=== PATIENT | female | born 1935 | race Caucasian/White ===

== ENCOUNTER 2018-09-02 12:21 | Inpatient (IN) | payer MEDICARE ==
[~2018-09-02] VITALS: Ht 157.5 cm; Wt 45.8 kg
--- NOTE | ~2018-09-02 | PN ---
PATIENT:BOBBY HUGHES MEDICAL RECORD: [id number] LOCATION:DELMIS KhalilLei ADMISSION DATE: 09/02/18 PROGRESS NOTE DATE OF SERVICE: 09/11/2018 SUBJECTIVE: The patient's case was discussed with staff. She has no new complaint. OBJECTIVE: The patient denies intent to harm herself or others. She generally tolerates her medicines well. She is participating in some activities, but generally is withdrawn and isolated. She is sleeping well, but is not eating very well. She is taking Megace to assist with this. TRANSINT:[id number] Voice Confirmation ID: [id number] DOCUMENT ID: [id number] PALLAVI DENNIS MD at 1050 CC: [id number] DICTATION DATE: 09/11/18 1311 PICKLE MAKER: 09/11/18 1337 ADM IN [facility] [address] [place] [address]
--- NOTE | ~2018-09-02 | PN ---
PATIENT:BOBBY HUGHES MEDICAL RECORD: [id number] LOCATION:FrancoSemajTAMMIE Khalil112 ADMISSION DATE: 09/02/18 PROGRESS NOTE DATE OF SERVICE: 09/08/2018 SUBJECTIVE: The patient's case was discussed with staff. She has no new complaint. OBJECTIVE: The patient denies intent to harm herself or others. She generally tolerates her medicines well. She has fairly limited insight about her situation. ASSESSMENT: No change in diagnoses. PLAN: The patient is not eating well. I am going to check baseline labs to get a feel for any metabolic abnormalities. She is also not sleeping well, I am going to prescribe trazodone at a dose of 50 mg at bedtime. Her dementia is quite advanced. I am afraid her prognosis is not very good unless I can change the current circumstances and in particular increase her oral intake. TRANSINT:[id number] Voice Confirmation ID: [id number] DOCUMENT ID: [id number] PALLAVI DENNIS MD at 1327 CC: [id number] DICTATION DATE: 09/09/18 1030 DIRECTOR OF GLOBAL MARKETING: 09/09/18 1105 ADM IN [facility] [address] [place] [address]
--- NOTE | ~2018-09-02 | PN ---
PATIENT:BOBBY HUGHES MEDICAL RECORD: [id number] LOCATION:DELMIS KhalilLei ADMISSION DATE: 09/02/18 PROGRESS NOTE DATE OF SERVICE: 09/10/2018 SUBJECTIVE: The patient's case was discussed with staff. She has no new complaint. OBJECTIVE: The patient denies intent to harm herself or others. She is impaired cognitively. She did require some p.r.n. medication for agitation. ASSESSMENT: No change in diagnoses. PLAN: The patient will be given trazodone at a higher dose for sleep consolidation. Her long-term prognosis is guarded. Supportive and educational interventions were made. TRANSINT:[id number] Voice Confirmation ID: [id number] DOCUMENT ID: [id number] PALLAVI DENNIS MD at 1309 CC: [id number] DICTATION DATE: 09/10/18 1332 TICKET MANAGER: 09/10/18 1540 ADM IN [place] [address] [place] [id number]
--- NOTE | ~2018-09-02 | PN ---
PATIENT:BOBBY HUGHES MEDICAL RECORD: [id number] LOCATION:DELMIS Khalil112 ADMISSION DATE: 09/02/18 PROGRESS NOTE DATE OF SERVICE: 09/07/2018 SUBJECTIVE: The patient's case was discussed with staff. She has no new complaint. OBJECTIVE: The patient is oriented partially. She only began taking her medicine consistently yesterday. She did sleep for 8-1/2 hours. Unfortunately, she ate nothing yesterday. This was despite efforts to encourage her to eat. She now says that she wants to and that she is not going to eat. ASSESSMENT: No change in diagnoses. PLAN: The patient's thyroid level is good. She is on Zoloft and Namenda. They have not had an opportunity to become effective. I will maintain the dose as they are today, but we will likely increase the dose tomorrow. TRANSINT:[id number] Voice Confirmation ID: [id number] DOCUMENT ID: [id number] PALLAVI DENNIS MD at 1133 CC: [id number] DICTATION DATE: 09/07/18 1519 TOURIST HOME KEEPER: 09/07/181999 ADM IN [facility] [address] [place] [address]
--- NOTE | ~2018-09-02 | PN ---
PATIENT:BOBBY HUGHES MEDICAL RECORD: [id number] LOCATION:DELMIS KhalilLei ADMISSION DATE: 09/02/18 PROGRESS NOTE DATE OF SERVICE: 09/14/2018 SUBJECTIVE: The patient's case was discussed with staff. She has no new complaint. OBJECTIVE: The patient is in good behavioral control with limited insight about her condition. She generally tolerates her medicines well. ASSESSMENT: No change in diagnoses. PLAN: Current medicines have been reviewed and will be maintained. I am going to discontinue her trazodone since she is obviously sleeping adequately. TRANSINT:[id number] Voice Confirmation ID: [id number] DOCUMENT ID: [id number] PALLAVI DENNIS MD at 1058 CC: [id number] DICTATION DATE: 09/14/18 1426 BODY MASKER: 09/14/18 1622 ADM IN [facility] [address] [place] [address]
--- NOTE | ~2018-09-02 | PN ---
PATIENT:BOBBY HUGHES MEDICAL RECORD: [id number] LOCATION:DELMIS RemiLei ADMISSION DATE: 09/02/18 PROGRESS NOTE DATE OF SERVICE: 09/03/2018 SUBJECTIVE: The patient's case was discussed with staff. She has no new complaint. OBJECTIVE: The patient denies intent to harm herself or others. She is much more verbal today and interacts with me in a very appropriate manner. She is clearly impaired cognitively and some of the information she gives me is probably not correct and I say this based on the fact that other things she tells me her clearly confabulated. She does endorse depressive symptoms, but denies that she would seek to harm herself. She is not eating adequately for reasons that are a little unclear. She is depressed, but I do not think that is the reason I am thinking this is more of something related to an advanced dementia. ASSESSMENT: No change in diagnoses. PLAN: I am going to change the patient's Celexa to a different antidepressant. I am also going to start her on Megace for its appetite stimulating properties. TRANSINT:[id number] Voice Confirmation ID: [id number] DOCUMENT ID: [id number] PALLAVI DENNIS MD at 1249 CC: [id number] DICTATION DATE: 09/03/18 1633 METAL SOLDERER: 09/03/18 1724 ADM IN [place] [address] [place] [address]
--- NOTE | ~2018-09-02 | PN ---
PATIENT:BOBBY HUGHES MEDICAL RECORD: [id number] LOCATION:DELMIS Khalil112 ADMISSION DATE: 09/02/18 PROGRESS NOTE DATE OF SERVICE: 09/17/2018 SUBJECTIVE: The patient's case was discussed with staff. She has no new complaint. OBJECTIVE: The patient denies intent to harm herself or others. She is quite impaired cognitively. I think she may be eating a little bit better today. She actually asked for some water and that was encouraging. She has a BUN of 24 and a creatinine of 1.1 two days ago. I am hopeful that the Megace is helping. She ate all of her breakfast yesterday, but actually none of her lunch and dinner. With regard to her medications, she is on a reasonable dose of an antidepressant, although my opinion is that this is not depression, it is dementia that is causing her to not eat, but nevertheless, she is on a reasonable dose of Zoloft. It has only been at this dose for a day or two. She is taking some Klonopin at a very low dose to relieve some of her shaking and agitation. She did sleep fairly well last night. I think it would be reasonable to try her on a low dose of Namenda to help with her cognitive impairment. I have been reluctant to give her Aricept since it is often associated with anorexia. The Namenda can be as well, but it is less likely and I am not really sure how she could be even less prone to eat than she currently is, so I am going to go ahead and give it a try. I think if she thought a little bit more clearly perhaps we might be able to get her to eat or drink some. ASSESSMENT: No change in diagnoses. PLAN: This patient's condition is grave. She was seen and accepted by hospice today. If I cannot turn her situation around in this hospitalization, she will just be going to the intermediate with comfort care. I am not optimistic I can do that, but I do not want to discharge her until I feel confident that I have tried every possible remedy or treatment to make her more active and to eat and drink more. TRANSINT:[id number] Voice Confirmation ID: [id number] DOCUMENT ID: [id number] PALLAVI DENNIS MD at 1204 CC: [id number] DICTATION DATE: 09/17/181743 WOOD SCALER: 09/17/18 2336 ADM IN [facility] [address] [place] [id number]
--- NOTE | ~2018-09-02 | PN ---
PATIENT:BOBBY HUGHES MEDICAL RECORD: [id number] LOCATION:DELMIS Khalil112 ADMISSION DATE: 09/02/18 PROGRESS NOTE DATE OF SERVICE: 09/05/2018 SUBJECTIVE: The patient's case was discussed with staff. She has no new complaint. OBJECTIVE: The patient has been somewhat agitated today. She has been hitting and kicking at the staff when they are trying to provide basic care to her. I asked her about this, but she became angry and turned away and then would not talk to me at all after that. I have reviewed her current medications. She still is not eating well even though Megace has been started, but it probably has not had an opportunity to become effective. I am going to give her a low dose of an antidepressant in case these behaviors are somewhat related to a depressive condition. At this point, I do not believe that they probably are, but the relative risks and benefits is in favor of using the medicine. It is my opinion that the behaviors are related to a dementia and an underlying personality disorder. TRANSINT:[id number] Voice Confirmation ID: [id number] DOCUMENT ID: [id number] PALLAVI DENNIS MD at 1556 CC: [id number] DICTATION DATE: 09/05/18 1253 MED SPA MANAGER: 09/05/18 1514 ADM IN [place] [id number] [place] [address]
--- NOTE | ~2018-09-02 | PN ---
PATIENT:BOBBY HUGHES MEDICAL RECORD: [id number] LOCATION:DELMIS KhalilLei ADMISSION DATE: 09/02/18 PROGRESS NOTE DATE OF SERVICE: 09/18/2018 5SUBJECTIVE: The patient's case was discussed with staff. She has no new complaint. GENERAL: The patient is alert and oriented to person only. She did eat a little better yesterday, but still is not eating adequately. She has very limited insight and denies that she would seek to harm herself or others. ASSESSMENT: No change in diagnoses. PLAN: Current medicines have been reviewed and will be maintained. Long-term prognosis is guarded. TRANSINT:[id number] Voice Confirmation ID: [id number] DOCUMENT ID: [id number] PALLAVI DENNIS MD at 1052 CC: [id number] DICTATION DATE: 09/18/18 1213 HEAD OF STORE OPERATIONS: 09/18/18 1229 ADM IN [place] [address] [place] [address]
--- NOTE | ~2018-09-02 | PN ---
PATIENT:BOBBY HUGHES MEDICAL RECORD: [id number] LOCATION:DELMIS Remi112 ADMISSION DATE: 09/02/18 PROGRESS NOTE DATE OF SERVICE: 09/16/2018 SUBJECTIVE: The patient's case was discussed with staff. She has no new complaint. OBJECTIVE: The patient has limited insight about her condition. She generally tolerates her medicines well. She is still not eating or drinking adequately. Hospice is going to evaluate her or they may have evaluated her since I saw her this morning. ASSESSMENT: No change in diagnoses. PLAN: The patient had her Zoloft increased yesterday. I really do not think her issues are related to depression. I think it is an advanced dementia, but it is a reasonable step to give her an antidepressant with the hopes that her appetite will improve. If accepted by hospice, I anticipate she can be transitioned there soon. TRANSINT:[id number] Voice Confirmation ID: [id number] DOCUMENT ID: [id number] PALLAVI DENNIS MD at 1730 CC: [id number] DICTATION DATE: 09/16/18 1425 SHUTTLE TRUCK DRIVER: 09/16/18 1508 ADM IN [facility] [address] [place] [address]
--- NOTE | ~2018-09-02 | PN ---
PATIENT:BOBBY HUGHES MEDICAL RECORD: [id number] LOCATION:DELMIS Khalil112 ADMISSION DATE: 09/02/18 PROGRESS NOTE DATE OF SERVICE: 09/15/2018 SUBJECTIVE: The patient's case was discussed with staff. She has no new complaint. OBJECTIVE: The patient is in good behavioral control. She has limited insight about her condition. She generally tolerates her medicines well. Unfortunately, she is not eating. I think this is related to an advanced dementia, but I am going to treat her with antidepressant medications as a possible secondary or contributing factor. Obviously, if she cannot or will not eat, her long-term survival is at risk. I am going to increase her dose of Zoloft today to try to address this issue. Hospice is going to evaluate her for possible placement in hospice. I am also going to order baseline labs to see how metabolically impaired she is. TRANSINT:[id number] Voice Confirmation ID: [id number] DOCUMENT ID: [id number] PALLAVI DENNIS MD at 0908 CC: [id number] DICTATION DATE: 09/15/18 1117 AUTOMATION QA ANALYST: 09/15/18 1150 ADM IN [facility] [address] [place] [address]
--- NOTE | ~2018-09-02 | PN ---
PATIENT:BOBBY HUGHES MEDICAL RECORD: [id number] LOCATION:DELMIS GamezSemaj112 ADMISSION DATE: 09/02/18 PROGRESS NOTE DATE OF SERVICE: 09/20/2018 SUBJECTIVE: The patient's case was discussed with staff. She has no new complaint. OBJECTIVE: The patient continues to not eat adequately or consume adequate fluids. She was a little agitated last night, required some p.r.n. Ativan. I have discussed the situation with the full treatment team this afternoon. ASSESSMENT: No change in diagnoses. PLAN: I am going to increase the patient's Namenda slightly. It is my opinion after consulting with the nursing staff and social media marketing manager that this patient is not going to improve. Based on this, she will be transitioned to the longterm tomorrow with hospice in attendance. Unfortunately, her prognosis is exceedingly poor. TRANSINT:[id number] Voice Confirmation ID: [id number] DOCUMENT ID: [id number] PALLAVI DENNIS MD at 1147 CC: [id number] DICTATION DATE: 09/20/18 1609 INSTRUMENTATION INSTRUCTOR: 09/21/18 0034 ADM IN [facility] [address] [place] [address]
--- NOTE | ~2018-09-02 | PN ---
PATIENT:BOBBY HUGHES MEDICAL RECORD: [id number] LOCATION:DELMIS Remi112 ADMISSION DATE: 09/02/18 PROGRESS NOTE DATE OF SERVICE: 09/06/2018 SUBJECTIVE: The patient's case was discussed with staff. She has no new complaint. OBJECTIVE: The patient is not eating adequately. She has been started on Megace. She does have a depressed mood and has been started on Zoloft. She does have hypothyroidism and her TSH either has not been checked or is pending. I will order it again since it should be part of the admission labs. She has been engaged in a number of attention seeking behaviors, consistent with a personality disorder, but she clearly is also quite demented. ASSESSMENT: No change in diagnoses. PLAN: I am going to increase the patient's Zoloft probably tomorrow. I am also going to start her on a low dose of Namenda to assist with her cognitive impairment. In addition to this, I will check her thyroid level. TRANSINT:[id number] Voice Confirmation ID: [id number] DOCUMENT ID: [id number] PALLAVI DENNIS MD at 1042 CC: [id number] DICTATION DATE: 09/06/18 1613 PELLET MACHINE OPERATOR: 09/06/18 1738 ADM IN [place] [id number] [place] [address]
--- NOTE | ~2018-09-02 | PSY ---
PATIENT NAME:BOBBY HUGHES MEDICAL RECORD: [id number] : 33 LOCATION:DELMIS Magaña ADMISSION DATE: 09/02/18 ACCOUNT: [id number] PSYCHIATRIC EVALUATION DATE OF EVALUATION: 09/02/18 IDENTIFYING DATA: The patient is 82 years old and she is admitted to the hospital on a voluntary basis. CHIEF COMPLAINT: Agitation. HISTORY OF PRESENT ILLNESS: The patient comes to us from a assisted in [place]. I am not sure how long she has been a resident there, but she has been agitated, disruptive, and uncooperative. I do not have all the details about what she has been doing there, but the assisted feels that she is a potential danger. She is not cooperative with me. She is laying her head on the table. When shaken and asked to talk to me, would not follow through with answering questions, even though the nurse who had been with her just a few minutes prior to that said she was conversant. PAST MEDICAL HISTORY: Significant for Parkinson's disease, hyperparathyroidism, hypothyroidism, and history of sepsis. She also has hypertension. PAST PSYCHIATRIC HISTORY: Significant for an established diagnosis of dementia along with a history of depression. FAMILY HISTORY: Unknown. ALLERGIES: SULFA, TETRACYCLINES, PROTONIX, AND NUMEROUS OTHER MEDICATIONS THAT I WILL REFER YOU TO HER RECORD SINCE THERE AT LEAST A DOZEN. CURRENT MEDICATIONS: Include Synthroid, Prilosec, Celexa, aspirin, Norvasc, iron, Zofran, Ultram, Mirapex, Pamelor, Neurontin, Sinemet, and a variety of vitamins. MENTAL STATUS EXAMINATION: The patient is awake, alert and oriented to person and place. She is not cooperative in answering questions. She does not appear to be in acute distress. SOCIAL HISTORY: The patient is . She does have adult children and she lives in a local assisted. There is no mention of a history of substance abuse in the scant records that are currently available. ASSETS: Stable living environment. LIABILITIES: Limited insight. DIAGNOSTIC IMPRESSION: AXIS I: Senile dementia of the Alzheimer's type with behavioral disturbances. AXIS II: None. AXIS III: Hypertension, hyperparathyroidism, hypothyroidism, Parkinson's disease. AXIS IV: Moderate stressors. AXIS V: Global assessment of functioning is 25. PLAN: At this time, the patient is admitted to the hospital secondary to agitated and aggressive behavior associated with a dementia. She will be comprehensively evaluated and treated with both mood stabilizing and memory enhancing medications. Her long-term prognosis is guarded. TRANSINT:[id number] Voice Confirmation ID: [id number] DOCUMENT ID: [id number] PALLAVI DENNIS MD at 1627 CC: [id number] DICTATION DATE: 09/02/18 1658 WICKER WORKER: 09/02/18 1728 ADM IN [place] [id number] [place] [id number]
--- NOTE | ~2018-09-02 | PN ---
PATIENT:BOBBY HUGHES MEDICAL RECORD: [id number] LOCATION:DELMIS KhalilLei ADMISSION DATE: 09/02/18 PROGRESS NOTE DATE OF SERVICE: 09/08/2018 SUBJECTIVE: The patient's case was discussed with staff. She has no new complaint. OBJECTIVE: The patient denies intent to harm herself today. She actually ate about a third of her meals yesterday. She is generally more cooperative today. ASSESSMENT: No change in diagnoses. PLAN: Current medicines have been reviewed and will be maintained. Her long-term prognosis is guarded. TRANSINT:[id number] Voice Confirmation ID: [id number] DOCUMENT ID: [id number] PALLAVI DENNIS MD at 1021 CC: [id number] DICTATION DATE: 09/08/18 1207 GREEN CHAIN PULLER: 09/08/18 1302 ADM IN [place] [id number] [place] [address]
--- NOTE | ~2018-09-02 | PN ---
PATIENT:BOBBY HUGHES MEDICAL RECORD: [id number] LOCATION:DELMIS Remi112 ADMISSION DATE: 09/02/18 PROGRESS NOTE DATE OF SERVICE: 09/04/2018 SUBJECTIVE: The patient's case was discussed with staff. She has no new complaint. OBJECTIVE: The patient denies intent to harm herself or others. She generally is tolerating her medicines well. ASSESSMENT: No change in diagnoses. PLAN: The patient will have her Pamelor discontinued. I will start a different antidepressant probably tomorrow. She is still not eating adequately. She is less conversant today than she was yesterday. TRANSINT:[id number] Voice Confirmation ID: [id number] DOCUMENT ID: [id number] PALLAVI DENNIS MD at 1556 CC: [id number] DICTATION DATE: 09/04/18 1258 CREW CHIEF: 09/04/18 1305 ADM IN [facility] [address] [place] [address]
--- NOTE | ~2018-09-02 | PN ---
PATIENT:BOBBY HUGHES MEDICAL RECORD: [id number] LOCATION:DELMIS GamezSemajLei ADMISSION DATE: 09/02/18 PROGRESS NOTE DATE OF SERVICE: 09/13/2018 SUBJECTIVE: The patient's case was discussed with staff. She has no new complaint. OBJECTIVE: The patient denies intent to harm herself or others. She generally tolerates her medicines well. She has limited insight about her condition and is fortunately sleeping much better. ASSESSMENT: No change in diagnoses. PLAN: The patient will be treated with a higher dose of Namenda. Namenda is being used to treat her underlying cognitive impairment. She will be monitored for clinical changes associated with its use. TRANSINT:[id number] Voice Confirmation ID: [id number] DOCUMENT ID: [id number] PALLAVI DENNIS MD at 0932 CC: [id number] DICTATION DATE: 09/13/18 1555 RIGGER THIRD: 09/13/18 1713 ADM IN [place] [address] [place] [address]
--- NOTE | ~2018-09-02 | PN ---
PATIENT:BOBBY HUGHES MEDICAL RECORD: [id number] LOCATION:DELMIS Khalil112 ADMISSION DATE: 09/02/18 PROGRESS NOTE DATE OF SERVICE: 09/19/2018 SUBJECTIVE: The patient's case was discussed with staff. She has no new complaint. OBJECTIVE: The patient denies intent to harm herself or others. She generally tolerates her medicines well. Eye contact is fair. ASSESSMENT: No change in diagnoses. PLAN: Current medicines have been reviewed and will be maintained. Long-term prognosis is guarded. Brief supportive and educational interventions were made. TRANSINT:[id number] Voice Confirmation ID: [id number] DOCUMENT ID: [id number] PALLAVI DENNIS MD at 1541 CC: [id number] DICTATION DATE: 09/19/18 1200 SALES PROMOTION REPRESENTATIVE: 09/19/18 1649 ADM IN [place] [address] [place] [address]
--- NOTE | ~2018-09-02 | PN ---
PATIENT:BOBBY HUGHES MEDICAL RECORD: [id number] LOCATION:DELMIS KhalilLei ADMISSION DATE: 09/02/18 PROGRESS NOTE DATE OF SERVICE: 09/12/2018 SUBJECTIVE: The patient's case was discussed with staff. She has no new complaint. OBJECTIVE: The patient is in good behavioral control. She is tolerating her medications well. ASSESSMENT: No change in diagnoses. PLAN: The patient will be given Klonopin at a dose of 0.25 mg twice daily. Her long-term prognosis is guarded. TRANSINT:[id number] Voice Confirmation ID: [id number] DOCUMENT ID: [id number] PALLAVI DENNIS MD at 1551 CC: [id number] DICTATION DATE: 09/12/18 1155 SAP GATHERER: 09/12/18 1216 ADM IN [place] [address] [place] [address]
--- NOTE | ~2018-09-02 | PN ---
PATIENT:BOBBY HUGHES MEDICAL RECORD: [id number] LOCATION:DELMIS Trent ADMISSION DATE: 09/02/18 PROGRESS NOTE DATE OF SERVICE: 09/21/2018 SUBJECTIVE: The patient's case was discussed with staff. She has no new complaint. OBJECTIVE: The patient is in good behavioral control with limited insight about her condition. She tolerates her medicines well. She is not eating or drinking adequately. ASSESSMENT: No change in diagnoses. PLAN: The patient does not represent a direct or acute risk to herself or others. She is going to receive hospice and comfort care measures at the shelter. Her long-term prognosis is unfortunately poor. TRANSINT:[id number] Voice Confirmation ID: [id number] DOCUMENT ID: [id number] PALLAVI DENNIS MD at 1142 CC: [id number] DICTATION DATE: 09/21/18 1154 PROJ MGR: 09/21/18 1204 DIS IN 09/21/18 [place] [address] [place] [address]
[2018-09-02] MEDS ORDERED: SYNTHROID75 MCG PO (14:30)
[2018-09-02] MEDS ORDERED: MIRAPEX0.25 MG PO (14:30)
[2018-09-02] MEDS ORDERED: PAMELOR 25 MG C25 MG PO (14:31)
[2018-09-02] MEDS ORDERED: FERROUS SULFAT325 MG PO (14:31)
[2018-09-02] MEDS ORDERED: NORVASC10 MG PO (14:32)
[2018-09-02] MEDS ORDERED: VITAMIN D10000 UNI1 (14:33)
[2018-09-02] MEDS ORDERED: VITAMIN B-12500 MC1 PO (14:34)
[2018-09-02] MEDS ORDERED: SUPER B COMPLE150 MG PO (14:34)
[2018-09-02] MEDS ORDERED: BAYER CHEWABLE81 MG PO (14:34)
[2018-09-02] MEDS ORDERED: ACTIGALL 300 M300 MG (14:35)
[2018-09-02] MEDS ORDERED: SYSTANE NIGHTT3.5 GM EACH EYE (14:36)
[2018-09-02] MEDS ORDERED: HYDROXYZINE HCL10 MG ×2 (14:38→14:46)
[2018-09-02] MEDS ORDERED: ULTRAM50 MG PO (14:38)
[2018-09-02] MEDS ORDERED: ACETAMINOPHEN325 MG PO (14:39)
[2018-09-02] MEDS ORDERED: ZOFRAN4 MG PO (14:40)
[2018-09-02] MEDS ORDERED: VOLTAREN100 GM TOPICAL (14:41)
[2018-09-02] MEDS ORDERED: OMEPRAZOLE20 M1 PO (14:42)
[2018-09-02] MEDS ORDERED: TESSALON PERLE100 MG PO (14:42)
[2018-09-02] MEDS ORDERED: NEURONTIN 300300 MG PO (14:44)
[2018-09-02] MEDS ORDERED: SINEMET 25-2501 EACH PO (14:45)
[2018-09-02] MEDS ORDERED: CELEXA20 MG PO (14:47)
[2018-09-02] MEDS ORDERED: DIPROLENE 0.05%60 M1 (14:48)
[2018-09-02 16:03] VITALS: BP 145/77; BMI 18.4
[2018-09-02 17:12] LABS: BASOPHILS 0.3 % (0-2); EOSINOPHILS 5.1 % (0-7); HEMATOCRIT 36.7 % (36.0-48.0); HEMOGLOBIN 11.9 g/dL (12-16); IMMATURE GRANULOCYTES 0.2 % (0-5); LYMPHOCYTES 23.2 % (15-50); MCH 30.7 pg (26.0-34.0); MCHC 32.4 g/dL (31.0-37.0); MCV 94.6 fL (80.0-100.0); MEAN PLATELET VOLUME 10.3 fL (7.4-10.4); MONOCYTES 11.6 % (2-11); NEUTROPHILS 59.6 % (40-80); PLATELET COUNT 240 10x3/uL (130-400); RBC 3.88 10x6/uL (4.00-5.40); RDW 14.1 % (11.5-14.5); WBC 5.9 10x3/uL (4.8-10.8)
[2018-09-02 17:16] LABS: ALBUMIN 3.4 g/dL (3.4-5.0); ANION GAP 12.3 mmol/L (8-16); BILIRUBIN - TOTAL 0.54 mg/dL (0.2-1.3); CALCIUM 9.2 mg/dL (8.5-10.1); CARBON DIOXIDE 28.7 mmol/L (21.0-32.0); CHOL - HDL RATIO 2.7 ratio (2.3-4.1); CREATININE - SERUM 1.2 mg/dL (0.6-1.3); LDL-HDL RATIO 1.5 ratio (1.5-3.5); PROTEIN - SERUM 7.3 g/dL (6.4-8.2); THYROID STIMULATING HORMONE 2.13 uIU/mL (0.36-3.74)
[2018-09-02 20:49] VITALS: BP 124/64
[2018-09-03 06:17] LABS: RAPID PLASMA REAGIN Non Reactive (Non Reactive)
[2018-09-03 07:43] LABS: CHOL - HDL RATIO 2.8 ratio (2.3-4.1); LDL-HDL RATIO 1.6 ratio (1.5-3.5)
[2018-09-03 08:27] VITALS: BMI 18.5
[2018-09-03 09:20] LABS: FOLATE (FOLIC ACID) - SERUM 14.3 ng/mL (>3.0)
[2018-09-03 10:57] VITALS: BP 149/77
[2018-09-03 13:37] VITALS: Ht 157.5 cm; Wt 45.8 kg
[2018-09-03 20:29] VITALS: BP 145/83
[2018-09-04 08:00] VITALS: BP 157/88
[2018-09-04 08:30] VITALS: BP 157/88
[2018-09-05 04:29] LABS: APPEARANCE CLEAR (CLEAR); BILIRUBIN NEGATIVE (NEGATIVE); COLOR YELLOW (YELLOW); GLUCOSE NEGATIVE (NEGATIVE); KETONE SMALL mg/dL (NEGATIVE); NITRITE NEGATIVE (NEGATIVE); PROTEIN NEGATIVE (NEGATIVE); UROBILINOGEN NORMAL (NORMAL)
[2018-09-05 08:30] VITALS: BP 169/84
[2018-09-06 08:30] VITALS: BP 136/44
[2018-09-07 08:30] VITALS: BP 167/83
[2018-09-08 10:03] VITALS: BP 143/65
[2018-09-08 19:41] VITALS: BP 138/78
[2018-09-09 08:51] VITALS: BP 142/76
[2018-09-09 11:59] LABS: BASOPHILS 0.3 % (0-2); EOSINOPHILS 6.2 % (0-7); HEMATOCRIT 40.6 % (36.0-48.0); HEMOGLOBIN 13.2 g/dL (12-16); IMMATURE GRANULOCYTES 0.2 % (0-5); LYMPHOCYTES 21.8 % (15-50); MCH 30.6 pg (26.0-34.0); MCHC 32.5 g/dL (31.0-37.0); MEAN PLATELET VOLUME 9.8 fL (7.4-10.4); MONOCYTES 8.5 % (2-11); PLATELET COUNT 273 10x3/uL (130-400); RBC 4.32 10x6/uL (4.00-5.40); WBC 6.5 10x3/uL (4.8-10.8)
[2018-09-09 12:14] LABS: ALBUMIN 3.5 g/dL (3.4-5.0); ANION GAP 10.3 mmol/L (8-16); BILIRUBIN - TOTAL 0.54 mg/dL (0.2-1.3); CALCIUM 9.5 mg/dL (8.5-10.1); CARBON DIOXIDE 28.4 mmol/L (21.0-32.0); POTASSIUM - SERUM 3.7 mmol/L (3.5-5.1); PROTEIN - SERUM 7.9 g/dL (6.4-8.2)
[2018-09-09 19:13] VITALS: BP 131/79
[2018-09-10 08:04] VITALS: BP 130/76
[2018-09-10 20:04] VITALS: BP 120/70
[2018-09-11 10:18] VITALS: BP 131/80
[2018-09-11 21:22] VITALS: BP 156/83
[2018-09-12 08:52] VITALS: BP 116/72
[2018-09-12 20:00] VITALS: BP 132/77
[2018-09-13 08:00] VITALS: BP 135/76
[2018-09-13 12:29] LABS: BASOPHILS 0.3 % (0-2); EOSINOPHILS 3.7 % (0-7); HEMATOCRIT 36.8 % (36.0-48.0); HEMOGLOBIN 11.8 g/dL (12-16); IMMATURE GRANULOCYTES 0.1 % (0-5); LYMPHOCYTES 16.3 % (15-50); MCHC 32.1 g/dL (31.0-37.0); MCV 93.6 fL (80.0-100.0); MEAN PLATELET VOLUME 10.2 fL (7.4-10.4); MONOCYTES 8.4 % (2-11); NEUTROPHILS 71.2 % (40-80); PLATELET COUNT 241 10x3/uL (130-400); RBC 3.93 10x6/uL (4.00-5.40); RDW 14.2 % (11.5-14.5); WBC 7.7 10x3/uL (4.8-10.8)
[2018-09-13 12:37] LABS: ALBUMIN 3.1 g/dL (3.4-5.0); ANION GAP 9.1 mmol/L (8-16); BILIRUBIN - TOTAL 0.53 mg/dL (0.2-1.3); CALCIUM 8.7 mg/dL (8.5-10.1); CARBON DIOXIDE 29.2 mmol/L (21.0-32.0); CREATININE - SERUM 1.1 mg/dL (0.6-1.3); POTASSIUM - SERUM 3.3 mmol/L (3.5-5.1); PROTEIN - SERUM 7.5 g/dL (6.4-8.2)
[2018-09-13 19:53] VITALS: BP 143/66
[2018-09-14 08:00] VITALS: BP 148/75
[2018-09-14 09:29] LABS: APPEARANCE CLOUDY (CLEAR); BACTERIA MANY /hpf (NONE SEEN); BILIRUBIN NEGATIVE (NEGATIVE); COLOR YELLOW (YELLOW); EPITHELIAL CELLS OCC /hpf (0-5); GLUCOSE NEGATIVE (NEGATIVE); KETONE NEGATIVE (NEGATIVE); NITRITE POSITIVE (NEGATIVE); PROTEIN TRACE mg/dL (NEGATIVE); RED CELLS - URINE 0-5 /hpf (0-5); SPECIFIC GRAVITY 1.005 (1.005-1.020); WHITE CELLS - URINE 0-5 /hpf (0-5)
[2018-09-14 09:30] LABS: MUCUS <1+ /lpf (NONE SEEN)
[2018-09-14 19:53] VITALS: BP 126/72
[2018-09-15 07:30] VITALS: BP 143/81
[2018-09-15 12:42] LABS: BASOPHILS 0.4 % (0-2); HEMATOCRIT 42.6 % (36.0-48.0); IMMATURE GRANULOCYTES 0.2 % (0-5); LYMPHOCYTES 14.1 % (15-50); MCH 31.2 pg (26.0-34.0); MCHC 32.9 g/dL (31.0-37.0); MCV 94.9 fL (80.0-100.0); MEAN PLATELET VOLUME 10.8 fL (7.4-10.4); MONOCYTES 7.7 % (2-11); NEUTROPHILS 74.6 % (40-80); RBC 4.49 10x6/uL (4.00-5.40); RDW 14.2 % (11.5-14.5); WBC 9.5 10x3/uL (4.8-10.8)
[2018-09-15 12:44] LABS: PLATELET COUNT 369 10x3/uL (130-400)
[2018-09-15 13:00] LABS: ALBUMIN 3.9 g/dL (3.4-5.0); BILIRUBIN - TOTAL 0.49 mg/dL (0.2-1.3); CALCIUM 9.4 mg/dL (8.5-10.1); CARBON DIOXIDE 25.7 mmol/L (21.0-32.0); CREATININE - SERUM 1.1 mg/dL (0.6-1.3); POTASSIUM - SERUM 3.7 mmol/L (3.5-5.1); PROTEIN - SERUM 9.3 g/dL (6.4-8.2)
[2018-09-15 20:05] VITALS: BP 148/69
[2018-09-16 09:47] VITALS: BP 157/87
[2018-09-16 20:06] VITALS: BP 148/78
[2018-09-17 09:01] VITALS: BP 169/83
[2018-09-17 19:40] VITALS: BP 132/77
[2018-09-18 09:21] VITALS: BP 134/90
[2018-09-19 07:00] VITALS: BP 143/63
[2018-09-19 20:31] VITALS: BP 151/79
[2018-09-20 07:00] VITALS: BP 168/96
[2018-09-20] MEDS ORDERED: LISINOPRIL10 MG PO (16:10)
[2018-09-20] MEDS ORDERED: KLONOPIN0.5 MG PO (16:11)
[2018-09-20] MEDS ORDERED: ZOLOFT100 MG PO (16:11)
[2018-09-20] MEDS ORDERED: NAMENDA5 MG PO (16:11)
[2018-09-20] MEDS ORDERED: MIRAPEX0.125 MG PO (16:11)
[2018-09-20] MEDS ORDERED: LINZESS145 MCG PO (16:12)
[2018-09-20] MEDS ORDERED: FLORAJEN3 CAPS460 MG PO (16:12)
[2018-09-20] MEDS ORDERED: MEGACE ES625 MG/5 M PO (16:12)
[2018-09-20] MEDS ORDERED: SENNA8.6 MG PO (16:12)
[2018-09-20 20:20] VITALS: BP 145/72
[2018-09-21 07:00] VITALS: BP 158/93
== END 2018-09-21 13:15 | DRG 56 ==
LOC: D.PSYCH 12:21
PROVIDERS: Family Medicine; Psychiatry & Neurology Psychiatry
DX: G30.1 Alzheimer's disease with late onset (principal); J18.9 Pneumonia, unspecified organism; F02.81 Dementia in other diseases classified elsewhere, unspecified severity, with behavioral disturbance; Z68.1 Body mass index [BMI] 19.9 or less, adult; I10 Essential (primary) hypertension; E03.9 Hypothyroidism, unspecified; L27.0 Generalized skin eruption due to drugs and medicaments taken internally; T36.1X5A Adverse effect of cephalosporins and other beta-lactam antibiotics, initial encounter; G20 Parkinson's disease; D50.9 Iron deficiency anemia, unspecified; K21.9 Gastro-esophageal reflux disease without esophagitis; E53.8 Deficiency of other specified B group vitamins; F32.9 Major depressive disorder, single episode, unspecified; K59.00 Constipation, unspecified; E87.6 Hypokalemia; R63.0 Anorexia; E21.3 Hyperparathyroidism, unspecified